=== PATIENT | male | born 1970 ===

== ENCOUNTER 2021-03-07 15:10 | Outpatient (REF) | payer MEDICAID, SELFPAY ==
--- NOTE | ~2021-03-07 | XR_ITS ---
EXAMINATION: XR SHOULDER, LEFT CLINICAL INFORMATION: Left shoulder pain. COMPARISON: None. TECHNIQUE: AP external rotation, Grashey, scapular Y, and axillary views of the left shoulder. FINDINGS: Mild glenohumeral joint space narrowing with small inferior marginal osteophytes. No osseous erosion. No fracture or dislocation. Unremarkable acromioclavicular joint. No abnormal soft tissue calcification. XR/XR shoulder LT min 2V IMPRESSION: Mild glenohumeral osteoarthritis.
== END 2021-03-07 15:11 | disposition home or self-care (01) ==
LOC: HO.XRAY 15:10
PROVIDERS: Absent Provider Nurse Practitioner Primary Care; PCP Nurse Practitioner Primary Care; Visit Provider Family Medicine
DX: M25.512 Pain in left shoulder (principal)
CPT/HCPCS: 73030

== ENCOUNTER 2022-10-29 09:24 | Outpatient (REF) | payer MEDICAID, SELFPAY ==
--- NOTE | ~2022-10-29 | US_ITS ---
EXAMINATION: US ABDOMEN COMPLETE CLINICAL INFORMATION: History of hepatitis C. COMPARISON: None TECHNIQUE: Real-time imaging of the abdominal viscera. FINDINGS: PANCREAS: There is a normal-sized nonenlarged lymph nodes seen adjacent the pancreatic head. The pancreas itself is normal in appearance as visualized. ABDOMINAL AORTA: The proximal, mid, and distal segments are normal in caliber. INFERIOR VENA CAVA: Visualized portions are normal. LIVER: Normal. The liver is normal in size. The liver contour is normal. Parenchymal echogenicity is normal. No focal hepatic lesion. There is no intrahepatic biliary duct dilatation seen. GALLBLADDER: Normal. The gallbladder is physiologically distended without evidence of stones, sludge, polyps, wall thickening or pericholecystic fluid. COMMON BILE DUCT: Normal in caliber measuring 0.2 cm in diameter. RIGHT KIDNEY: There is a 7 mm simple cyst in the right mid kidney. No hydronephrosis or renal calculi. The kidney measures 9.8 cm in maximum dimension. LEFT KIDNEY: Normal. No hydronephrosis. No renal calculi or focal parenchymal lesions. The kidney measures 8.3 cm in maximum dimension. SPLEEN: Normal. The spleen measures 8.6 cm in maximum dimension. FREE FLUID: None. US/US abdomen complete IMPRESSION: No focal liver abnormality seen.
== END 2022-10-29 09:25 | disposition home or self-care (01) ==
LOC: HO.US 09:24
PROVIDERS: Visit Provider Nurse Practitioner Primary Care
DX: Z86.19 Personal history of other infectious and parasitic diseases (principal)
CPT/HCPCS: 76700

== ENCOUNTER 2023-08-05 12:17 | Outpatient (REF) | payer MEDICAID, SELFPAY ==
[2023-08-05 13:13] LABS: Appearance Urine Clear; Color Urine Yellow; Glucose Urine UA Negative (Negative); Leukocyte Esterase Urine Negative (Negative); Nitrite Urine Negative (Negative); PH 5.5 (5.0-9.0); UMIC TRIGGER UA YES; Urine Blood Trace (Negative); Urine Ketones Negative (Negative); Urine Protein Negative (Neg-Trace)
[2023-08-05 13:19] LABS: Bacteria Urine None Seen (None Seen); Hyaline Casts Urine 0-2 /LPF (0-2); RBC Urine 0-2 /HPF (0-2); Squamous Epithelial Cell Urine 0-2 /HPF (0-2); WBC Urine 0-5 /HPF (0-5)
[2023-08-05 14:26] LABS: Anion Gap 13 (12-20); Blood Urea Nitrogen 15 mg/dL (9-16); Calcium 9.5 mg/dL (8.4-10.2); Carbon Dioxide 29 mmol/L (22-29); Chloride 103 mmol/L (96-108); Estimated Glomerular Filt Rate > 60; Glucose Random 83 mg/dL (60-115); Potassium 4.3 mmol/L (3.3-5.1); Prostate Specific Antigen 0.16 ng/mL (<0.05-4.0); Sodium 141 mmol/L (135-145)
== END 2023-08-05 12:18 | disposition home or self-care (01) ==
LOC: HO.HHCL 12:17
PROVIDERS: Visit Provider Nurse Practitioner Primary Care
DX: R39.11 Hesitancy of micturition (principal); R20.0 Anesthesia of skin; R20.2 Paresthesia of skin
CPT/HCPCS: 36415; 80048; 81001; 84153

== ENCOUNTER 2023-10-08 13:04 | Outpatient (REF) | payer MEDICAID, SELFPAY ==
[2023-10-08 16:25] LABS: MANUAL DIFF FLAG NO
[2023-10-08 16:32] LABS: Basophils Percent Auto 0.9 % (0-2); Eosinophils Absolute Auto 0.1 X10*3/uL (0.0-0.4); Eosinophils Percent Auto 2.4 % (0-4); Hematocrit 35.9 % (42.0-52.0); Hemoglobin 11.7 g/dl (14.0-18.0); Imm Gran Abs Auto 0.01 X10*3/uL (0.00-0.03); Imm Gran Pct Auto 0.2 % (0.0-0.4); Lymphocytes Absolute Auto 1.7 X10*3/uL (1.2-4.9); Lymphocytes Percent Auto 37.4 % (20-40); Mean Corpuscular HGB Conc 32.6 g/dl (31.0-36.0); Mean Corpuscular Hemoglobin 25.2 pg (27.0-33.0); Mean Corpuscular Volume 77.2 fL (80.0-98.0); Mean Platelet Volume 11.5 fL (9.4-12.4); Monocytes Absolute Auto 0.8 X10*3/uL (0.1-1.2); Monocytes Percent Auto 18.7 % (2-11); Neutrophils Absolute Auto 1.8 x10*3/uL (2.0-8.3); Neutrophils Percent Auto 40.4 % (45-73); Platelet Count 202 X10*3/uL (160-400); Red Blood Count 4.65 X10*6/uL (4.60-5.80); Red Cell Distribution Width 14.7 % (11.0-16.0); White Blood Count 4.5 X10*3/uL (4.8-10.8)
[2023-10-08 16:46] LABS: Alanine Aminotransferase 12 U/L (0-40); Albumin Level 4.3 g/dL (3.5-5.0); Alkaline Phosphatase 41 U/L (39-117); Anion Gap 14 (12-20); Aspartate Amino Transferase 23 U/L (5-37); Bilirubin Total 0.4 mg/dL (0.0-1.0); Blood Urea Nitrogen 21 mg/dL (9-16); Calcium 9.2 mg/dL (8.4-10.2); Carbon Dioxide 27 mmol/L (22-29); Chloride 104 mmol/L (96-108); Estimated Glomerular Filt Rate > 60; Glucose Random 87 mg/dL (60-115); Potassium 4.3 mmol/L (3.3-5.1); Sodium 141 mmol/L (135-145); Total Protein 7.6 g/dL (6.5-8.0)
[2023-10-08 18:44] LABS: Appearance Urine Clear; Color Urine Yellow; Glucose Urine UA Negative (Negative); Leukocyte Esterase Urine Negative (Negative); Nitrite Urine Negative (Negative); PH 5.5 (5.0-9.0); UMIC TRIGGER UACC YES; Urine Blood Small (1+) (Negative); Urine Ketones Negative (Negative); Urine Protein Negative (Neg-Trace)
[2023-10-08 19:01] LABS: Bacteria Urine None Seen (None Seen); Hyaline Casts Urine 0-2 /LPF (0-2); Squamous Epithelial Cell Urine 0-2 /HPF (0-2); WBC Urine 0-5 /HPF (0-5)
[2023-10-09 10:43] LABS: Absolute CD3 Count 1035 cells/uL (840-3060); Absolute CD4 Count 441 cells/uL (490-1740); Absolute CD8 Count 588 cells/uL (180-1170); Absolute Lymphocytes 1857 cells/uL (850-3900); CD4 CD8 Ratio 0.75 (0.86-5.00); Percent CD3 Cells 56 % (57-85); Percent CD4 Cells 24 % (30-61); Percent CD8 Cells 32 % (12-42)
[2023-10-09 14:19] LABS: CT PCR NOT DETECTED (Not Detect.); NG PCR NOT DETECTED (Not Detect.)
[2023-10-12 13:03] LABS: HIV RNA PCR Qn Copies 63 copies/mL (NOT DETECTED)
== END 2023-10-08 13:05 | disposition home or self-care (01) ==
LOC: HO.HHCL 13:04
PROVIDERS: Visit Provider Student in an Organized Health Care Education/Training Program
DX: B20 Human immunodeficiency virus [HIV] disease (principal)
CPT/HCPCS: 0353U; 36415; 80053; 81001; 85025; 86359; 86360; 87536

== ENCOUNTER 2023-11-12 16:10 | Outpatient (REF) | payer MEDICAID, SELFPAY ==
[2023-11-12 16:21] LABS: Appearance Urine Clear; Color Urine Yellow; Glucose Urine UA Negative (Negative); Leukocyte Esterase Urine Negative (Negative); Nitrite Urine Negative (Negative); PH 5.5 (5.0-9.0); Specific Gravity - Urine 1.025 (1.005-1.025); UMIC TRIGGER UACC YES; Urine Blood Trace (Negative); Urine Ketones Negative (Negative); Urine Protein Negative (Neg-Trace)
[2023-11-12 16:24] LABS: Bacteria Urine None Seen (None Seen); Hyaline Casts Urine 0-2 /LPF (0-2); RBC Urine 0-2 /HPF (0-2); Squamous Epithelial Cell Urine 0-2 /HPF (0-2); WBC Urine 0-5 /HPF (0-5)
== END 2023-11-12 16:11 | disposition home or self-care (01) ==
LOC: HO.HHCLNP 16:10
PROVIDERS: Visit Provider Nurse Practitioner Primary Care
DX: N50.811 Right testicular pain (principal)
CPT/HCPCS: 81001

== ENCOUNTER 2023-12-07 09:50 | Outpatient (AMB) | payer MEDICAID, SELFPAY ==
--- NOTE | 2023-12-07 09:53 | MHC.OFFVIS ---
Intake Intake Visit Reasons: microscopic heamturia Intake Note: New Patient presents for initial visit for micro hematuria Urology Medications: none Blood Thinner: none Smoker:No Patient stated he uses vape cigarette, He also stated he has a mild burning pain sometimes when he urinates, he saw visible blood in the urine only once, a few weeks ago.He also stated he has a right testicular mass. Electrical Design Technologist Required: Yes Electrical Design Technologist Name: CLARITZA CRUZEdisonChauncey Accompanied by: Self / Same As Patient Allergies NKDA Allergy (Unknown, Uncoded 12/07/23 10:41) Unknown Medication List - Last Reconciled 12/07/23 by Farnaz Sherman, [facility]- czylngzuc-qdduvsss-adhinmv ala 50-200-25 mg (Biktarvy) 1 tab PO QAM buprenorphine-naloxone 8-2 mg (Suboxone) 10 mg sublingual TID ferrous sulfate (FeroSul) 325 mg PO DAILY mecobalamin (vitamin B12) (B12 Active) 1,000 mcg PO DAILY multivitamin (Multiple Vitamins tablet) 1 tab PO DAILY pregabalin 75 mg PO BID triamcinolone acetonide 0.1% appl topical HPI HPI Comments History of Present Illness Details Reza is a pleasant 53-year-old Stateless-speaking male patient of Dr. Payne. He has a past medical history of fibromyalgia, depression, and nicotine dependence. He presents to the office today as a new patient for microscopic hematuria. In discussion with the patient today reports to be doing and feeling well. He reports having followed up with his PCP at which time microscopic hematuria was noted and recommendations were made for urology referral. When asked he does report a longstanding history of nicotine dependence over the last 20 years. He reports recently switching to vaping. Discussed at length potential causes of microscopic hematuria. Discussed at length further workup with CT urogram, cytology, and in office cystoscopy versus surveillance monitoring. This was discussed at length. Risks and benefits of further treatment options were discussed. He also discusses following up with PCP regarding intermittent scrotal pain he has been experiencing. In review of patient's chart it appears scrotal ultrasound was ordered however not yet performed. Offered examination however patient declines at this time. Discussed at length potential causes of scrotal pain. He denies urinary urgency, urinary frequency, incontinence, nocturia, dysuria, foul smelling urine, changes to urinary stream, flank pain, fever, and or chills. He is happy with his current voiding parameters. In office urinalysis results reviewed with the patient today 1+ microscopic hematuria. In review of patient's chart it appears PSA 08/16--0.2. He otherwise offers no other issues or concerns at this time [facility] Medical History Urinary hesitancy Tobacco dependence syndrome Depressive disorder Fibromyalgia Surgical History (Updated 12/07/23 @ 10:24 by Maggie Richardson CMA) No pertinent past surgical history Social History (Updated 12/07/23 @ 10:18 by Maggie Richardson CMA) Patient Tobacco Use Status: Never used Tobacco Review of Systems Const All systems reviewed & are unremarkable except as noted in HPI and below Eyes Reports no additional complaints ENT Reports no additional complaints Card Reports no additional complaints GI Reports no additional complaints Reports as per HPI Musc Reports as per HPI Neuro Reports no additional complaints Psych Reports as per HPI Endo Reports no additional complaints Kenneth/Lymph Reports no additional complaints Aller/Immun Reports no additional complaints Physical Exam Const General: cooperative, healthy appearing, comfortable, no acute distress, well developed, alert and awake Nutritional Appearance: average body habitus Orientation/consciousness: patient oriented x3 Limitations: no limitations HEENT Head: Yes normal to inspection, Yes normocephalic and Yes atraumatic Ears: hearing grossly normal bilaterally Eyes General: appearance normal, both eyes and all related structures Neck Neck: Yes normal visual inspection and Yes trachea midline Chest Chest palpation & inspection: normal inspection of the chest Resp Effort & Inspection: normal respiratory effort and able to speak in complete sentences Cardio Rate: regular rate GI Inspection: Yes normal to inspection General: Yes no CVA tenderness Back/Spine/Pelvis Back: no CVA tenderness Skin General skin exam: no rashes or lesions noted Neuro General: patient oriented x3 Extrem General: Yes normal to inspection Psych Appearance: grossly normal and well kempt Mental Status: mental status grossly normal Speech and movement: Normal speech and movement present and Clear speech present Affect: normal affect Attitude: cooperative Thought process: Normal thought process present Thought content: Normal thought content present Insight: Fair insight present (Psych) Judgement: Fair judgement present (Psych) Results AMB Urinalysis, Automated UA Leukoctes 0 Jaye/uL Last Edit by Maggie Richardson CMA on 12/07/23 10:26 UA Nitrite Negative Last Edit [facility], [facility] on 12/07/23 10:26 UA Urobilinogen 0.2 mg/dL Last Edit [facility], [facility] on 12/07/23 10:26 UA Protein 0 mg/dL Last Edit [facility], [facility] on 12/07/23 10:26 UA pH 6.0 Last Edit by [facility], [facility] on 12/07/23 10:26 UA Blood 25 Dieter/uL Last Edit by [facility], [facility] on 12/07/23 10:26 UA Specific [place] 1.025 Last Edit by Maggie Richardsonguicho Remya, [facility] on 12/07/23 10:26 UA Ketone Negative Last Edit [facility], [facility] on 12/07/23 10:26 UA Bilirubin 0 mg/dL Last Edit [facility], [facility] on 12/07/23 10:26 UA Glucose 0 mg/dL Last Edit [facility] on 12/07/23 10:26 Results Reviewed Results Reviewed: Laboratory Last Values Urine pH (Auto) 6.0 12/07/23 09:53 Specific [place] (Auto) 1.025 12/07/23 09:53 Urine Protein (Auto) 0 mg/dL 12/07/23 09:53 Glucose (UA)(Auto) 0 mg/dL 12/07/23 09:53 Urine Ketones (Auto) Negative 12/07/23 09:53 Urine Blood (Auto) 25 Dieter/uL 12/07/23 09:53 Urine Nitrite (Auto) Negative 12/07/23 09:53 Urine Bilirubin (Auto) 0 mg/dL 12/07/23 09:53 Urine Urobilinogen (Auto) 0.2 mg/dL 12/07/23 09:53 Leukocyte Esterase (Auto) 0 Jaye/uL 12/07/23 09:53 Assessment & Plan Assessment & Plan (1) Nicotine dependence: Code(s): F17.200 - Nicotine dependence, unspecified, uncomplicated (2) Microscopic hematuria: Code(s): R31.29 - Other microscopic hematuria Plan In office urinalysis results reviewed with the patient today; as noted above; will send for cytology. Discussed at length potential causes of microscopic hematuria as well as scrotal discomfort patient has been experiencing intermittently; this was discussed at length. Discussed, educated, and stressed the importance of limiting/quitting vaping and or nicotine dependence. Discussed at length risks and benefits of further treatment options Will obtain CT urogram for further assessment evaluation. Discussed scheduling scrotal u/s as order has already been placed by patients PCP. BUN and creatinine ordered for imaging. Patient currently denies any bothersome urinary issues. He is happy with his current voiding parameters. Discussed and stressed the importance of obtaining scrotal ultrasound; patient declines physical assessment today Follow-up in 1-2 months with imaging and labs to be completed prior; or sooner with any issues, concerns, and or questions. Orders: Orders Urine Cytology 12/07/23 N39.0 - Urinary tract infection, site not specified, R31.29 - Other microscopic hematuria CT urogram 12/07/23 F17.200 - Nicotine dependence, unspecified, uncomplicated, R31.29 - Other microscopic hematuria Blood Urea Nitrogen 12/07/23 F17.200 - Nicotine dependence, unspecified, uncomplicated, R31.29 - Other microscopic hematuria Creatinine 12/07/23 F17.200 - Nicotine dependence, unspecified, uncomplicated, R31.29 - Other microscopic hematuria AMB Urinalysis Automated 12/07/23 R33.9 - Retention of urine, unspecified Patient Instructions: The patient had an opportunity to ask questions regarding the treatment plan. All questions were answered. Physical exam, labs, and imaging were discussed and reviewed in detail. As well as risks, benefits, and discussion of treatment choices. No major barriers to understanding were identified. The patient expressed understanding and agreement with the above treatment plan. The patient was made aware they should contact our office by phone for worsening of their current condition, the appearance of new symptoms, or with any questions or concerns. Compliance is encouraged with any medications and follow up testing that is ordered. It is a privilege to be allowed the opportunity to participate in? your urological care.? Again, if you have any questions or concerns If you have any questions or concerns please do not hesitate to contact me. The office is [phone]. This note is constructed using voice recognition software. While every effort has been made to ensure accuracy radio program director errors may have been included. Yours sincerely, Farnaz Sherman, MA[employer]GER [employer] Coding Level of Care Code New Pt Level 4 (83665) Diagnoses Nicotine dependence F17.200 Microscopic hematuria R31.29 Time Spent (min) 40
== END 2023-12-07 10:37 | disposition home or self-care (01) ==
PROVIDERS: PCP Nurse Practitioner Primary Care; Visit Provider Nurse Practitioner Family
DX: F17.200 Nicotine dependence, unspecified, uncomplicated (principal); R31.29 Other microscopic hematuria
CPT/HCPCS: 99204

== ENCOUNTER 2023-12-07 09:50 | Outpatient (REF) | payer MEDICAID, SELFPAY ==
[2023-12-07 16:47] LABS: Urine Cytology See Pathology rpt
== END 2023-12-07 09:51 | disposition home or self-care (01) ==
LOC: HO.LAB 09:50
PROVIDERS: PCP Nurse Practitioner Primary Care; Visit Provider Nurse Practitioner Family
DX: R31.29 Other microscopic hematuria (principal); N39.0 Urinary tract infection, site not specified; F17.200 Nicotine dependence, unspecified, uncomplicated
CPT/HCPCS: 81003; 88112; 99212

== ENCOUNTER 2024-01-04 09:52 | Outpatient (REF) | payer MEDICAID, SELFPAY ==
[2024-01-04 12:08] LABS: Blood Urea Nitrogen 18 mg/dL (9-16); Estimated Glomerular Filt Rate > 60
[2024-01-05 14:34] LABS: HIV RNA PCR Qn Copies 38 copies/mL (NOT DETECTED); HIV RNA PCR Qn Log Copies 1.58 (NOT DETECTED)
== END 2024-01-04 09:53 | disposition home or self-care (01) ==
LOC: HO.HHCL 09:52
PROVIDERS: Student in an Organized Health Care Education/Training Program; Visit Provider Nurse Practitioner Family
DX: B20 Human immunodeficiency virus [HIV] disease (principal); R31.29 Other microscopic hematuria; F17.200 Nicotine dependence, unspecified, uncomplicated
CPT/HCPCS: 36415; 82565; 84520; 87536

== ENCOUNTER 2024-01-27 09:32 | Outpatient (AMB) | payer MEDICAID, SELFPAY ==
--- NOTE | 2024-01-27 09:52 | AM.OFFVISNUR ---
Intake Intake Visit Reasons: cysto/CT booked on 02/03/2024 Intake Note: Patient presents today for a CYSTOSCOPY Procedure: Meds: None Allergies to Antibiotic: No Known Allergies Blood Thinner: None Urinalysis test clear for Cysto? YES Disposable Uro-G HD Cystoscope Cannula: Lot: [id number] Exp: 08/19/2026 Rn Clinical Quality Required: Yes Rn Clinical Quality Language: Liquor Grinder Mill Operator Name: JERAMY Fuller/ISABEL ANDERSEN Information Interpreted: non-clinical & clinical Transfer Operator: Transfer Operator Present Accompanied by: Self / Same As Patient Allergies NKDA Allergy (Unknown, Uncoded 01/27/24 09:59) Unknown Office Procedures Cystoscopy Consent Discussed risk and benefit or proposed procedure with the patient. Information consent for procedure given to the patient. Discussed technical aspects, risks, benefits and alternatives in full. Addressed all of the patient's questions and concerns regarding the procedure. The patient demonstrated knowledge and understanding. They wish to proceed with this procedure. Preparation The patient was prepped in the usual manner. A principal technical specialist was present and in the room. Genitalia was prepped with betadine solution in a sterile manner. Lidocaine Jelly 2% was placed into the urethra and 16Fr flexible Olympus cystoscope was inserted into the meatus after adequate lubrication. [id number] DISPOSABLE SCOPE URO-G FLEXIBLE SCOPE Procedure code (CPT) selection complete Office Meds lidocaine HCl 2 % mucosal jelly in applicator Performing Provider: Eric Mathur MD Performing Location[facility] Administered by: Jesus Guthrie LPN on 01/27/24 09:52 Dose Route Admin Location Dispensed Lot Number Expiration Date [facility] Automatic Steel Tie Adjuster 10 mL intra-urethral 20 mL naproxen 500 mg tablet Performing Provider: Eric Mathur MD Performing Location: [facility] Administered by: Jesus Guthrie LPN on 01/27/24 09:52 Dose Route Admin Location Dispensed Lot Number Expiration Date [place] Automatic Steel Tie Adjuster 500 mg PO 1 tab ciprofloxacin HCl 500 mg tablet Performing Provider: Eric Mathur MD Performing Location: [facility] Administered by: Jesus Guthrie LPN on 01/27/24 09:52 Dose Route Admin Location Dispensed Lot Number Expiration Date [place] Automatic Steel Tie Adjuster 500 mg PO 1 tab Coding CPT Codes Cystoscopy - CPT: 95088-[id number] ([id number]) Assessment & Plan Assessment & Plan Orders: Orders AMB Cystoscopy Today R31.29 - Other microscopic hematuria
--- NOTE | 2024-01-27 10:36 | A.OFFVIS_ITS ---
Intake Intake Visit Reasons: cysto/CT booked on 02/03/2024 Intake Note: Patient presents today for a CYSTOSCOPY Procedure: Meds: None Allergies to Antibiotic: No Known Allergies Blood Thinner: None Urinalysis test clear for Cysto? YES Disposable Uro-G HD Cystoscope Cannula: Lot: [id number] Exp: 08/19/2026 Automotive Glass Specialist Required: Yes Automotive Glass Specialist Language: Racecar Driver Name: JERAMY Fuller/ISABEL Blanca Information Interpreted: non-clinical & clinical Salesperson Furniture: Salesperson Furniture Present Accompanied by: Self / Same As Patient Allergies NKDA Allergy (Unknown, Uncoded 01/27/24 10:37) Unknown Medication List - Last Reconciled 01/27/24 by Eric Mathur MD idkldurox-dalipbic-osaspyi ala 50-200-25 mg (Biktarvy) 1 tab PO QAM buprenorphine-naloxone 8-2 mg (Suboxone) 10 mg sublingual TID ferrous sulfate (FeroSul) 325 mg PO DAILY mecobalamin (vitamin B12) (B12 Active) 1,000 mcg PO DAILY multivitamin (Multiple Vitamins tablet) 1 tab PO DAILY pregabalin 75 mg PO BID triamcinolone acetonide 0.1% appl topical HPI HPI Comments 2 History of Present Illness Details 01/27/2024--Reza is HIV positive here f or office cystoscopy due to microscopic hematuria. He states that he has to push to urinate. I reviewed that urine cytology sent on 12/07/2023 -Negative for high-grade urothelial carcinoma.-Rare cells with features that raise the possibility of polyomavirus, unclear clinical significance, will repeat urine cytology. Cystoscopy findings: prostatic urethra non obstructive 'tight' sphincter tone observed, bulbous urethra WNL, no suspicious bladder lesions visualized. Plan -Flomax 0.4 mg daily repeat urine cytology. CT urogram pending. Nurse practitioner Farnaz to follow-up with patient regarding results. Review of chart: 12/07/2023--Reza is a pleasant 53-year -old Bulgarian-speaking male patient of Dr. Payne. He has a past medical history of fibromyalgia, depression, and nicotine dependence. He presents to the office today as a new patient for microscopic hematuria. In discussion with the patient today reports to be doing and feeling well. He reports having followed up with his PCP at which time microscopic hematuria was noted and recommendations were made for urology referral. When asked he does report a longstanding history of nicotine dependence over the last 20 years. He reports recently switching to vaping. Discussed at length potential causes of microscopic hematuria. Discussed at length further workup with CT urogram, cytology, and in office cystoscopy versus surveillance monitoring. This was discussed at length. Risks and benefits of further treatment options were discussed. He also discusses following up with PCP regarding intermittent scrotal pain he has been experiencing. In review of patient's chart it appears scrotal ultrasound was ordered however not yet performed. Offered examination however patient declines at this time. Discussed at length potential causes of scrotal pain. He denies urinary urgency, urinary frequency, incontinence, nocturia, dysuria, foul smelling urine, changes to urinary stream, flank pain, fever, and or chills. He is happy with his current voiding parameters. In office urinalysis results reviewed with the patient today 1+ microscopic hematuria. In review of patient's chart it appears PSA 08/16--0.2. He otherwise offers no other issues or concerns at this time 01/27/2024--Plan -Flomax 0.4 mg daily repe at urine cytology. CT urogram pending. Nurse practitioner Farnaz to follow-up with patient regarding results. [facility] Medical History HIV (human immunodeficiency virus infection) Urinary hesitancy Tobacco dependence syndrome Depressive disorder Fibromyalgia Surgical History No pertinent past surgical history Social History Patient Tobacco Use Status: Never used Tobacco Review of Systems Const All systems reviewed & are unremarkable except as noted in HPI and below Reports no additional complaints Eyes Reports no additional complaints ENT Reports no additional complaints Card Reports no additional complaints Resp Reports no additional complaints GI Reports no additional complaints Reports as per HPI Musc Reports no additional complaints Skin/Breast Reports system reviewed and no additional complaints, except as documented Neuro Reports no additional complaints Psych Reports no additional complaints Endo Reports no additional complaints Kenneth/Lymph Reports no additional complaints Aller/Immun Reports no additional complaints Office Procedures Cystoscopy Consent Discussed risk and benefit or proposed procedure with the patient. Information consent for procedure given to the patient. Discussed technical aspects, risks, benefits and alternatives in full. Addressed all of the patient's questions and concerns regarding the procedure. The patient demonstrated knowledge and understanding. They wish to proceed with this procedure. Preparation The patient was prepped in the usual manner. A software computer specialist was present and in the room. Genitalia was prepped with betadine solution in a sterile manner. Lidocaine Jelly 2% was placed into the urethra and 16Fr flexible Olympus cystoscope was inserted into the meatus after adequate lubrication. Procedure Time out per protocol performed. Bladder Inspection Bladder Inspection: The bladder was inspected in its entirety with utilization retroflexion displaying: Tumor(s): No suspicious lesions visualized Trabeculation: Mild to moderate Mucosal Erthema: Not applicable Orifices: normal shape and position Urethra: normal Cystoscopy findings: prostatic urethra non obstructive 'tight' sphincter tone observed, bulbous urethra WNL, no suspicious bladder lesions visualized [id number] DISPOSABLE SCOPE URO-G FLEXIBLE SCOPE Procedure code (CPT) selection complete Office Meds lidocaine HCl 2 % mucosal jelly in applicator Performing Provider: Eric Mathur MD [facility] Administered by: Jesus Guthrie LPN on 01/27/24 09:52 Dose Route Admin Location Dispensed Lot Number Expiration Date NDC Rn Pain Management 10 mL intra-urethral 20 mL naproxen 500 mg tablet Performing Provider: Eric Mathur MD Performing [facility] Administered by: Jesus Guthrie LPN on 01/27/24 09:52 Dose Route Admin Location Dispensed Lot Number Expiration Date NDC Rn Pain Management 500 mg PO 1 tab ciprofloxacin HCl 500 mg tablet Performing Provider: Eric Mathur MD Performing [facility] Administered by: Jesus Guthrie LPN on 01/27/24 09:52 Dose Route Admin Location Dispensed Lot Number Expiration Date NDC Rn Pain Management 500 mg PO 1 tab Results AMB Urinalysis, Automated UA Leukoctes 0 Jaye/uL Last Edit by JERAMY Fuller on 01/27/24 10:05 UA Nitrite Negative Last Edit by JERAMY Fuller on 01/27/24 10:05 UA Urobilinogen 0.2 mg/dL Last Edit by JERAMY Fuller on 01/27/24 10:0 5 UA Protein 0 mg/dL Last Edit by JERAMY Fuller on 01/27/24 10:05 UA pH 6.0 Last Edit by JERAMY Fuller on 01/27/24 10:05 UA Blood 25 Dieter/uL Last Edit by JERAMY Fuller on 01/27/24 10:05 1+ Tomás Garcia 01/27/24 10:05 UA Specific Lopeno 1.020 Last Edit by JERAMY Fuller on 01/27/24 10: 05 UA Ketone Negative Last Edit by JERAMY Fuller on 01/27/24 10:05 UA Bilirubin 0 mg/dL Last Edit by JERAMY Fuller on 01/27/24 10:05 UA Glucose 0 mg/dL Last Edit by JERAMY Fuller on 01/27/24 10:05 Results Reviewed Results Reviewed: Laboratory Last Values Urine pH (Auto) 6.0 01/27/24 10:03 Specific Lopeno (Auto) 1.020 01/27/24 10:03 Urine Protein (Auto) 0 mg/dL 01/27/24 10:03 Glucose (UA)(Auto) 0 mg/dL 01/27/24 10:03 Urine Ketones (Auto) Negative 01/27/24 10:03 Urine Blood (Auto) 25 Dieter/uL 01/27/24 10:03 Urine Nitrite (Auto) Negative 01/27/24 10:03 Urine Bilirubin (Auto) 0 mg/dL 01/27/24 10:03 Urine Urobilinogen (Auto) 0.2 mg/dL 01/27/24 10:03 Leukocyte Esterase (Auto) 0 Jaye/uL 01/27/24 10:03 Collected: 12/07/23 Location: .LAB Received: 12/08/23 Diagnosis Urine: -Negative for high-grade urothelial carcinoma. -Rare cells with features that raise the possibility of polyomavirus. COMMENT: Examination of a monolayer preparation slide shows benign urothelial cells with reactive changes, benign squamous cells, cellular debris, scattered red blood cells, occasional inflammatory cells few degenerated epithelioid cell groups (? tubular) and rare degenerated single cells with features that raise the possibility of polyomavirus. Assessment & Plan Assessment & Plan (1) Nicotine dependence: Code(s): F17.200 - Nicotine dependence, unspecified, uncomplicated (2) Microscopic hematuria: Code(s): R31.29 - Other microscopic hematuria (3) Abnormal urine cytology: Code(s): R82.89 - Other abnormal findings on cytological and histological examination of urine (4) Weak urinary stream: Code(s): R39.12 - Poor urinary stream Plan Plan -Flomax 0.4 mg daily repeat urine cytology. CT urogram pending. Nurse practitioner Farnaz to follow-up with patient regarding results. Orders: Orders AMB Cystoscopy Today R31.29 - Other microscopic hematuria AMB Urinalysis Automated Today Z13.9 - Encounter for screening, unspecified Medications: New tamsulosin (Flomax) 0.4 mg PO BEDTIME 30 caps 5RF Patient Instructions: The patient had an opportunity to ask questions regarding treatment plan. All questions were answered. No major barriers to understanding were identified. The patient expressed understanding and agreement with the above treatment plan. The patient is aware they should contact our office by phone for worsening of their current condition or the appearance of new symptoms. Compliance is encouraged with any medications and followup testing that is ordered. It is a privilege to be allowed the opportunity to participate in the urologic care of your patient. If you have any questions or concerns regarding treatment for the above conditions please do not hesitate to contact me. The office telephone contact is [phone]. This note is constructed in part using voice recognition software. While every effort has been made to ensure accuracy chancery clerk errors may have been included. Yours sincerely, Eric Mathur MD Coding Level of Care Code Est Pt Level 4 (42803) Procedure Only Diagnoses Nicotine dependence F17.200 Microscopic hematuria R31.29 Abnormal urine cytology R82.89 Weak urinary stream R39.12 CPT Codes Cystoscopy - CPT: 73583-[id number] ([id number])
== END 2024-01-27 11:04 | disposition home or self-care (01) ==
PROVIDERS: PCP Nurse Practitioner Primary Care; Visit Provider Urology
DX: R31.29 Other microscopic hematuria (principal); R82.89 Other abnormal findings on cytological and histological examination of urine; R39.12 Poor urinary stream; F17.200 Nicotine dependence, unspecified, uncomplicated; Z13.9 Encounter for screening, unspecified
CPT/HCPCS: 52000; 99214

== ENCOUNTER 2024-01-27 09:32 | Outpatient (REF) | payer MEDICAID, SELFPAY ==
[2024-01-27 16:46] LABS: Urine Cytology See Pathology rpt
== END 2024-01-27 09:33 | disposition home or self-care (01) ==
LOC: HO.LAB 09:32
PROVIDERS: PCP Nurse Practitioner Primary Care; Visit Provider Urology
DX: R31.29 Other microscopic hematuria (principal); R82.89 Other abnormal findings on cytological and histological examination of urine; R39.12 Poor urinary stream; F17.200 Nicotine dependence, unspecified, uncomplicated
CPT/HCPCS: 52000; 81003; 88112; 99212

== ENCOUNTER 2024-02-03 10:29 | Outpatient (REF) | payer MEDICAID, SELFPAY ==
--- NOTE | ~2024-02-03 | CT_ITS ---
EXAMINATION: CT ABDOMEN AND PELVIS WITHOUT AND WITH CONTRAST CLINICAL INFORMATION: Nicotine dependence, microscopic hematuria COMPARISON: Ultrasound examination of abdomen on 10/29/2022 TECHNIQUE: Noncontrast CT of the abdomen and pelvis is performed followed by split bolus contrast-enhanced images using 85 mL Omnipaque 350 contrast.? Postcontrast imaging is performed during the combined nephrogram and excretion phase. Sagittal and coronal reformatted images were obtained on the technologist's workstation for both the precontrast and postcontrast phases. This CT examination was performed using dose optimization techniques as appropriate, variously including the following: *Automated exposure control *Adjustment of mA and/or kV according to patient size (this includes techniques or standardized protocols for targeted exams where dose is matched to indication/reason for exam; i.e. extremities or head) *Use of iterative reconstruction technique DLP: 482.71 mGy-cm FINDINGS: LUNG BASES: Bilateral lung bases are clear. LIVER: No focal lesion is seen in the liver. GALLBLADDER AND BILIARY TREE: Gallbladder appears unremarkable without calcified stones. Common bile duct is not dilated. SPLEEN: The spleen is normal in size without focal lesion. PANCREAS: The pancreas appears unremarkable. ADRENAL GLANDS: Adrenal glands are normal in size without focal lesion bilaterally. KIDNEYS: Precontrast images show no calcified renal stones. Post contrast nephrographic phase images show normal uniform bilateral nephrograms. A tiny 0.8 cm simple cyst is seen at anterior medial cortical border of right kidney, visualized on ultrasound examination, for which no follow up imaging is recommended. Excretory phase images show normal excretion of contrast into bilateral renal calyces, pelvises and ureters without filling defects. BOWELS: There is mild fecal distention of the ascending and transverse colon. RETROPERITONEUM: No abnormally enlarged retroperitoneal lymph nodes, mass or hematoma could be seen. BLOOD VESSELS: Abdominal aorta is normal in size with calcified atherosclerotic plaques and smoothly patent. ABDOMINAL WALL: Abdominal subcutaneous tissue and muscle are intact. No evidence of ventral hernia. PERITONEUM: There was no ascites. There were no abdominal peritoneal inflammatory changes seen. No free peritoneal air was seen. No abnormally enlarged mesenteric lymph nodes are found. BONES: No fracture or dislocation. No focal bone lesion diagnostic of metastatic disease could be seen in the lumbar region. EXAMINATION: CT pelvis. FINDINGS: URINARY BLADDER AND URETERS: Precontrast images show no calcified urinary bladder stone or distal ureteric stones. Urinary bladder fills normally with contrast without filling defects. There is normal visualization of bilateral distal ureters which are normal in size. BOWELS: There is moderate fecal distention of the sigmoid colon. Appendix cannot be identified. GENITAL ORGANS: Seminal vesicles are unremarkable. Prostate gland is normal. LYMPH NODES: No abnormally enlarged iliac or inguinal lymph nodes are seen. PERITONEUM: No inflammatory changes, ascites or free peritoneal air are found in the pelvis. BONES: No fracture or dislocation. No focal bone lesion diagnostic of metastatic disease could be seen in the pelvis. CT/CT urogram IMPRESSION: 1. No evidence of nephrolithiasis, obstructive uropathy, renal mass or urothelial lesion. 2. Medial mid right renal cortical simple cyst is found, for which no follow up imaging is recommended. 3. Mild fecal distention of the ascending and transverse colon, Moderate fecal distention of the sigmoid colon.
[2024-02-03] MEDS: iohexoL 350 MG/ML 100 ML INFUS..BTL 85 ML IV (11:24)
== END 2024-02-03 10:30 | disposition home or self-care (01) ==
LOC: HO.CT 10:29
PROVIDERS: PCP Nurse Practitioner Primary Care; Visit Provider Nurse Practitioner Family
DX: R31.29 Other microscopic hematuria (principal); F17.200 Nicotine dependence, unspecified, uncomplicated
CPT/HCPCS: 74178; Q9967

== ENCOUNTER 2024-03-23 09:19 | Outpatient (AMB) | payer MEDICAID, SELFPAY ==
--- NOTE | 2024-03-23 09:41 | A.OFFVIS_ITS ---
Intake Visit Reasons: 1m/CT(set) Intake Note: Patient presents for follow up visit for micro hematuria Urology Medications: Tamsulosin Blood Thinner: none Smoker:No Equine Intern Required: Yes Equine Intern Name: CLARITZA CRUZJAYDEN Accompanied by: Self / Same As Patient Allergies NKDA Allergy (Unknown, Uncoded 03/23/24 09:57) Unknown Medication List - Last Reconciled 03/23/24 by Farnaz Sherman, INSURANCE CLAIMS SPECIALIST- [id number] ala 50-200-25 mg (Biktarvy) 1 tab PO QAM buprenorphine-naloxone 8-2 mg (Suboxone) 10 mg sublingual TID ferrous sulfate (FeroSul) 325 mg PO DAILY mecobalamin (vitamin B12) (B12 Active) 1,000 mcg PO DAILY multivitamin (Multiple Vitamins tablet) 1 tab PO DAILY pregabalin 75 mg PO BID tamsulosin (Flomax) 0.4 mg PO BEDTIME triamcinolone acetonide 0.1% appl topical HPI Comments Details: Reza is a pleasant 53-year-old Khmer-speaking male patient of Dr. Payne. He has a past medical history of fibromyalgia, depression, and nicotine dependence. He presents to the office today for follow-up of his microscopic hematuria in the setting of nicotine dependence and scrotal discomfort. Of note, patient underwent an office cystoscopy during last office visit with Dr. Domenic Tyson last month that noted Cystoscopy findings: prostatic urethra non obstructive 'tight' sphincter tone observed, bulbous urethra WNL, no suspicious bladder lesions visualized. However, CT urogram was pending therefore patient is following up today for CT results. These results reviewed with the patient today. Precontrast images show no calcified renal stones. Post contrast nephrographic phase images show normal uniform bilateral nephrograms. A tiny 0.8 cm simple cyst is seen at anterior medial cortical border of right kidney, visualized on ultrasound examination, for which no follow up imaging is recommended per radiology report. Excretory phase images show normal excretion of contrast into bilateral renal calyces, pelvises and ureters without filling defects. No abnormally enlarged retroperitoneal lymph nodes, masses, or hematoma seen. Urine cytology 12/18 -Negative for high-grade urothelial carcinoma. Rare cells with features that raise the possibility of polyomavirus. Cytology 02/15 Negative for high-grade urothelial carcinoma. He continues to discusses following up with PCP regarding intermittent scrotal pain he has been experiencing. In review of patient's chart it appears scrotal ultrasound was ordered however not yet performed. Offered examination however patient continues to decline at this time. He describes pain to be intermittent and feels like a soreness. He denies any recent trauma. He denies any associated nausea or vomiting. He currently denies pain however discusses having gone swimming this past weekend and felt a soreness afterwards. Discussed at length potential causes of scrotal pain. He denies urinary urgency, urinary frequency, incont inence, nocturia, dysuria, foul smelling urine, changes to urinary stream, flank pain, fever, and or chills. He is happy with his current voiding parameters. In office urinalysis results reviewed with the patient today. In review of patient's chart it appears PSA 08/16--0.2. He otherwise offers no other issues or concerns at this time. [facility] Medical History HIV (human immunodeficiency virus infection) Urinary hesitancy Tobacco dependence syndrome Depressive disorder Fibromyalgia Surgical History No pertinent past surgical history Social History Patient Tobacco Use Status: Never used Tobacco Review of Systems Const All systems reviewed & are unremarkable except as noted in HPI and below Eyes Reports no additional complaints ENT Reports no additional complaints Card Reports no additional complaints GI Reports no additional complaints Reports as per HPI Musc Reports as per HPI Neuro Reports no additional complaints Psych Reports as per HPI Endo Reports no additional complaints Kenneth/Lymph Reports no additional complaints Aller/Immun Reports no additional complaints Physical Exam Const General: cooperative, healthy appearing, comfortable, no acute distress, well developed, alert and awake Nutritional Appearance: average body habitus Orientation/consciousness: patient oriented x3 Limitations: no limitations HEENT Head: Yes normal to inspection, Yes normocephalic and Yes atraumatic Ears: hearing grossly normal bilaterally Eyes General: appearance normal, both eyes and all related structures Neck Neck: Yes normal visual inspection and Yes trachea midline Chest Chest palpation & inspection: normal inspection of the chest Resp Effort & Inspection: normal respiratory effort and able to speak in complete sentences Cardio Rate: regular rate GI Inspection: Yes normal to inspection General: Yes no CVA tenderness Back/Spine/Pelvis Back: no CVA tenderness Skin General skin exam: no rashes or lesions noted Neuro General: patient oriented x3 Extrem General: Yes normal to inspection Psych Appearance: grossly normal and well kempt Mental Status: mental status grossly normal Speech and movement: Normal speech and movement present and Clear speech present Affect: normal affect Attitude: cooperative Thought process: Normal thought process present Thought content: Normal thought content present Insight: Fair insight present (Psych) Judgement: Fair judgement present (Psych) Results AMB Urinalysis, Automated UA Leukoctes 0 Jaye/uL Last Edit by [employer] on 03/23/24 09:49 UA Nitrite Negative Last Edit by [employer] on 03/23/24 09:49 UA Urobilinogen 0.2 mg/dL Last Edit by [employer] on 03/23/24 09:49 UA Protein 0 mg/dL Last Edit by [employer] on 03/23/24 09:49 UA pH 6.0 Last Edit by [employer] on 03/23/24 09:49 UA Blood 10 Dieter/uL Last Edit by [employer] on 03/23/24 09:49 UA Specific [place] 1.015 Last Edit by [employer] on 03/23/24 09:49 UA Ketone Negative Last Edit by [employer] on 03/23/24 09:49 UA Bilirubin 0 mg/dL Last Edit by [employer] on 03/23/24 09:49 UA Glucose 0 mg/dL Last Edit by [employer] on 03/23/24 09:49 Results Reviewed Results Reviewed: Laboratory Last Values Urine pH (Auto) 6.0 03/23/24 09:42 Specific [place] (Auto) 1.015 03/23/24 09:42 Urine Protein (Auto) 0 mg/dL 03/23/24 09:42 Glucose (UA)(Auto) 0 mg/dL 03/23/24 09:42 Urine Ketones (Auto) Negative 03/23/24 09:42 Urine Blood (Auto) 10 Dieter/uL 03/23/24 09:42 Urine Nitrite (Auto) Negative 03/23/24 09:42 Urine Bilirubin (Auto) 0 mg/dL 03/23/24 09:42 Urine Urobilinogen (Auto) 0.2 mg/dL 03/23/24 09:42 Leukocyte Esterase (Auto) 0 Jaye/uL 03/23/24 09:42 Date of Service: 02/03/24 EXAMINATION: CT ABDOMEN AND PELVIS WITHOUT AND WITH CONTRAST FINDINGS: LUNG BASES: Bilateral lung bases are clear. LIVER: No focal lesion is seen in the liver. GALLBLADDER AND BILIARY TREE: Gallbladder appears unremarkable without calcified stones. Common bile duct is not dilated. SPLEEN: The spleen is normal in size without focal lesion. PANCREAS: The pancreas appears unremarkable. ADRENAL GLANDS: Adrenal glands are normal in size without focal lesion bilaterally. KIDNEYS: Precontrast images show no calcified renal stones. Post contrast nephrographic phase images show normal uniform bilateral nephrograms. A tiny 0.8 cm simple cyst is seen at anterior medial cortical border of right kidney, visualized on ultrasound examination, for which no follow up imaging is recommended. Excretory phase images show normal excretion of contrast into bilateral renal calyces, pelvises and ureters without filling defects. BOWELS: There is mild fecal distention of the ascending and transverse colon. RETROPERITONEUM: No abnormally enlarged retroperitoneal lymph nodes, mass or hematoma could be seen. BLOOD VESSELS: Abdominal aorta is normal in size with calcified atherosclerotic plaques and smoothly patent. ABDOMINAL WALL: Abdominal subcutaneous tissue and muscle are intact. No evidence of ventral hernia. PERITONEUM: There was no ascites. There were no abdominal peritoneal inflammatory changes seen. No free peritoneal air was seen. No abnormally enlarged mesenteric lymph nodes are found. BONES: No fracture or dislocation. No focal bone lesion diagnostic of metastatic disease could be seen in the lumbar region. EXAMINATION: CT pelvis. FINDINGS: URINARY BLADDER AND URETERS: Precontrast images show no calcified urinary bladder stone or distal ureteric stones. Urinary bladder fills normally with contrast without filling defects. There is normal visualization of bilateral distal ureters which are normal in size. BOWELS: There is moderate fecal distention of the sigmoid colon. Appendix cannot be identified. GENITAL ORGANS: Seminal vesicles are unremarkable. Prostate gland is normal. LYMPH NODES: No abnormally enlarged iliac or inguinal lymph nodes are seen. PERITONEUM: No inflammatory changes, ascites or free peritoneal air are found in the pelvis. BONES: No fracture or dislocation. No focal bone lesion diagnostic of metastatic disease could be seen in the pelvis. IMPRESSION: 1. No evidence of nephrolithiasis, obstructive uropathy, renal mass or urothelial lesion. 2. Medial mid right renal cortical simple cyst is found, for which no follow up imaging is recommended. 3. Mild fecal distention of the ascending and transverse colon, Moderate fecal distention of the sigmoid colon. Assessment & Plan Assessment & Plan (1) Abnormal urine cytology: Code(s): R82.89 - Other abnormal findings on cytological and histological examination of urine Category: Medical (2) Nicotine dependence: Code(s): F17.200 - Nicotine dependence, unspecified, uncomplicated Category: Medical (3) Microscopic hematuria: Code(s): R31.29 - Other microscopic hematuria Category: Medical (4) Scrotal pain: Code(s): N50.82 - Scrotal pain Category: Medical Plan In office urinalysis results reviewed with the patient today; as noted above. Recent CT results reviewed with the patient today; as noted above. Discussed at length potential causes of microscopic hematuria. Patient continuing to report intermittent scrotal discomfort however unable to a ssess patient today; discussed obtaining scrotal ultrasound as ordered by PCP earlier this year. Discussed potential causes of scrotal pain. Discussed importance of limiting vaping for overall health and well-being. Follow-up in 1-3 months with imaging to be completed prior; or sooner with any issues, concerns, and or questions. Orders: Orders AMB Urinalysis Automated Today Z13.9 - Encounter for screening, unspecified US scrotum 11/12/23 N50.89 - Other specified disorders of the male genital organs Urine Cytology Today R31.29 - Other microscopic hematuria Patient Instructions: The patient had an opportunity to ask questions regarding the treatment plan. All questions were answered. Physical exam, labs, and imaging were discussed and reviewed in detail. As well as risks, benefits, and discussion of treatment choices. No major barriers to understanding were identified. The patient expressed understanding and agreement with the above treatment plan. The patient was made aware they should contact our office by phone for worsening of their current condition, the appearance of new symptoms, or with any questions or concerns. Compliance is encouraged with any medications and follow up testing that is ordered. It is a privilege to be allowed the opportunity to participate in? your urological care.? Again, if you have any questions or concerns If you have any questions or concerns please do not hesitate to contact me. The office is [phone]. This note is constructed using voice recognition software. While every effort has been made to ensure accuracy shellfish processing laborer errors may have been included. Yours sincerely, VIKAS Rehman-JENNIE Coding Level of Care Code Est Pt Level 3 (85497) Diagnoses Abnormal urine cytology R82.89 Nicotine dependence F17.200 Microscopic hematuria R31.29 Scrotal pain N50.82
== END 2024-03-23 09:58 | disposition home or self-care (01) ==
PROVIDERS: PCP Nurse Practitioner Primary Care; Visit Provider Nurse Practitioner Family
DX: R82.89 Other abnormal findings on cytological and histological examination of urine (principal); F17.200 Nicotine dependence, unspecified, uncomplicated; R31.29 Other microscopic hematuria; N50.82 Scrotal pain
CPT/HCPCS: 99213

== ENCOUNTER 2024-03-23 09:19 | Outpatient (REF) | payer MEDICAID, SELFPAY | END 2024-03-23 09:20 | disposition home or self-care (01) | LOC: HO.LNP 09:19 | PROVIDERS: PCP Nurse Practitioner Primary Care; Visit Provider Nurse Practitioner Family | DX: R31.29 Other microscopic hematuria (principal); R82.89 Other abnormal findings on cytological and histological examination of urine; N50.82 Scrotal pain; F17.200 Nicotine dependence, unspecified, uncomplicated | CPT/HCPCS: 81003; 99212 ==

== ENCOUNTER 2024-03-23 11:53 | Outpatient (REF) | payer MEDICAID, SELFPAY ==
--- NOTE | ~2024-03-23 | XR_ITS ---
EXAMINATION: XR HIP, LEFT CLINICAL INFORMATION: Left lateral hip pain worse at night. COMPARISON: 10/16/2019 TECHNIQUE: Two views of the left hip. FINDINGS: Moderate degenerative changes in the left hip with superior narrowing of the joint space and hypertrophic change. Pubic symphysis and left sacroiliac joint are maintained. Amorphous calcifications in the soft tissues adjacent to the greater trochanter. XR/XR hip LT min 2V IMPRESSION: 1. Moderate degenerative changes in the left hip. 2. Amorphous calcifications in the soft tissues adjacent to the greater trochanter.
== END 2024-03-23 11:54 | disposition home or self-care (01) ==
LOC: HO.XRAY 11:53
PROVIDERS: PCP Nurse Practitioner Primary Care; Visit Provider Internal Medicine
DX: M25.552 Pain in left hip (principal)
CPT/HCPCS: 73502

== ENCOUNTER 2024-03-24 09:11 | Outpatient (REF) | payer MEDICAID, SELFPAY ==
--- NOTE | ~2024-03-24 | US_ITS ---
EXAMINATION: US SCROTUM CLINICAL INFORMATION: Testicular pain. Evaluate for epididymal mass. Evaluate for torsion. COMPARISON: None available. TECHNIQUE: A sonogram of the scrotum was performed assessing snyder-scale appearance and color Doppler flow. Spectral Doppler analysis of the arterial and venous flow were performed in the testes bilaterally. FINDINGS: RIGHT: Right testicle measures 4.2 x 2.0 x 3.4 cm, volume 14.5 mL. No focal testicular parenchymal lesions are visualized. Spectral Doppler analysis of the arterial and venous flow is normal in the right testis. Right epididymal head is normal in size. Right epididymal Doppler flow is normal. There is a small right hydrocele with debris. Right varicocele is also seen. LEFT: Left testicle measures 4.5 x 1.8 x 2.8 cm, volume 11.6 mL. No focal testicular parenchymal lesions are visualized. Spectral Doppler analysis of the arterial and venous flow is normal in the left testis. Left epididymal head is normal in size. No left hydrocele is seen. Left epididymal Doppler flow is normal. Left varicocele is seen. US/US scrotum IMPRESSION: 1. Normal testicles and epididymides. 2. Small right hydrocele with debris. 3. Bilateral varicoceles.
--- NOTE | ~2024-03-24 | US_ITS ---
EXAMINATION: US SCROTUM CLINICAL INFORMATION: Testicular pain. Evaluate for epididymal mass. Evaluate for torsion. COMPARISON: None available. TECHNIQUE: A sonogram of the scrotum was performed assessing snyder-scale appearance and color Doppler flow. Spectral Doppler analysis of the arterial and venous flow were performed in the testes bilaterally. FINDINGS: RIGHT: Right testicle measures 4.2 x 2.0 x 3.4 cm, volume 14.5 mL. No focal testicular parenchymal lesions are visualized. Spectral Doppler analysis of the arterial and venous flow is normal in the right testis. Right epididymal head is normal in size. Right epididymal Doppler flow is normal. There is a small right hydrocele with debris. Right varicocele is also seen. LEFT: Left testicle measures 4.5 x 1.8 x 2.8 cm, volume 11.6 mL. No focal testicular parenchymal lesions are visualized. Spectral Doppler analysis of the arterial and venous flow is normal in the left testis. Left epididymal head is normal in size. No left hydrocele is seen. Left epididymal Doppler flow is normal. Left varicocele is seen. US/US scrotum doppler IMPRESSION: 1. Normal testicles and epididymides. 2. Small right hydrocele with debris. 3. Bilateral varicoceles.
[2024-03-24 16:41] LABS: Urine Cytology See Pathology rpt
== END 2024-03-24 09:12 | disposition home or self-care (01) ==
LOC: HO.HMGCX 09:11
PROVIDERS: PCP Nurse Practitioner Primary Care; Visit Provider Nurse Practitioner Family
DX: R31.29 Other microscopic hematuria (principal); N50.89 Other specified disorders of the male genital organs; I86.1 Scrotal varices
CPT/HCPCS: 76870; 88112; 93975

== ENCOUNTER 2024-05-26 09:19 | Outpatient (AMB) | payer MEDICAID, SELFPAY ==
--- NOTE | 2024-05-26 09:28 | A.OFFVIS_ITS ---
Intake Visit Reasons: 2m/US(set) Intake Note: Patient presents for a 2 month/US follow up Urology Medications: Tamsulosin Blood Thinner: none Smoker:No Senior Front End Developer Required: Yes Senior Front End Developer Name: [id number] & CLARITZA CRUZJAYDEN Accompanied by: Self / Same As Patient Allergies NKDA Allergy (Unknown, Uncoded 03/23/24 09:57) Unknown Medication List - Last Reconciled 05/26/24 by Farnaz Sherman, [facility]- bixkdvuoy-wlcjhrzc-belffqy ala 50-200-25 mg (Biktarvy) 1 tab PO QAM buprenorphine-naloxone 8-2 mg (Suboxone) 10 mg sublingual TID ferrous sulfate (FeroSul) 325 mg PO DAILY mecobalamin (vitamin B12) (B12 Active) 1,000 mcg PO DAILY multivitamin (Multiple Vitamins tablet) 1 tab PO DAILY pregabalin 75 mg PO BID triamcinolone acetonide 0.1% appl topical HPI Comments Details: Reza is a pleasant 53-year-old Irish-speaking male patient of Dr. Payne. He has a past medical history of fibromyalgia, depression, and nicotine dependence. He presents to the office today for follow-up of his microscopic hematuria in the setting of nicotine dependence and scrotal discomfort. Recent scrotal ultrasound results reviewed with the patient today. Normal testicles and epididymitis, small right hydrocele, bilateral varicoceles. In discussion with the patient today he reports feeling lower urinary tract symptoms have since resolved and does not feel he has any bothersome urinary issues or concerns. In office urinalysis results reviewed with the patient today. Microscopic hematuria again noted. However, patient underwent an office cystoscopy 02/[address] Domenic Tyson last month that noted Cystoscopy findings: prostatic urethra non obstructive 'tight' sphincter tone observed, bulbous urethra WNL, no suspicious bladder lesions visualized. Previous workup has included a CT urogram that noted precontrast images show no calcified renal stones. Post contrast nephrographic phase images show normal uniform bilateral nephrograms. A tiny 0.8 cm simple cyst is seen at anterior medial cortical border of right kidney, visualized on ultrasound examination, for which no follow up imaging is recommended per radiology report. Excretory phase images show normal excretion of contrast into bilateral renal calyces, pelvises and ureters without filling defects. No abnormally enlarged retroperitoneal lymph nodes, masses, or h ematoma seen. Urine cytology 12/18 -Negative for high-grade urothelial carcinoma. Rare cells with features that raise the possibility of polyomavirus. Cytology 02/15 Negative for high-grade urothelial carcinoma. He denies urinary urgency, urinary frequency, incontinence, nocturia, dysuria, foul smelling urine, changes to urinary stream, flank pain, fever, and or chills. He is happy with his current voiding parameters. In review of patient's chart it appears PSA 08/16--0.2. He otherwise offers no other issues or concerns at this time. [facility] Medical History HIV (human immunodeficiency virus infection) Urinary hesitancy Tobacco dependence syndrome Depressive disorder Fibromyalgia Surgical History No pertinent past surgical history Social History Patient Tobacco Use Status: Never used Tobacco Review of Systems Const All systems reviewed & are unremarkable except as noted in HPI and below Eyes Reports no additional complaints ENT Reports no additional complaints Card Reports no additional complaints GI Reports no additional complaints Reports as per HPI Musc Reports as per HPI Neuro Reports no additional complaints Psych Reports as per HPI Endo Reports no additional complaints Kenneth/Lymph Reports no additional complaints Aller/Immun Reports no additional complaints Physical Exam Const General: cooperative, healthy appearing, comfortable, no acute distress, well developed, alert and awake Nutritional Appearance: average body habitus Orientation/consciousness: patient oriented x3 Limitations: no limitations HEENT Head: Yes normal to inspection, Yes normocephalic and Yes atraumatic Ears: hearing grossly normal bilaterally Eyes General: appearance normal, both eyes and all related structures Neck Neck: Yes normal visual inspection and Yes trachea midline Chest Chest palpation & inspection: normal inspection of the chest Resp Effort & Inspection: normal respiratory effort and able to speak in complete sentences Cardio Rate: regular rate GI Inspection: Yes normal to inspection General: Yes no CVA tenderness Back/Spine/Pelvis Back: no CVA tenderness Skin General skin exam: no rashes or lesions noted Neuro General: patient oriented x3 Extrem General: Yes normal to inspection Psych Appearance: grossly normal and well kempt Mental Status: mental status grossly normal Speech and movement: Normal speech and movement present and Clear speech present Affect: normal affect Attitude: cooperative Thought process: Normal thought process present Thought content: Normal thought content present Insight: Fair insight present (Psych) Judgement: Fair judgement present (Psych) Results AMB Urinalysis, Automated UA Leukoctes 0 Jaye/uL Last Edit by Sylvia Gonzalez CMA on 05/26/24 09:56 UA Nitrite Negative Last Edit by Sylvia Gonzalez CMA on 05/26/24 09:56 UA Urobilinogen 0.2 mg/dL Last Edit by Sylvia Gonzalez CMA on 05/26/24 09:56 UA Protein 0 mg/dL Last Edit by Sylvia Gonzalez CMA on 05/26/24 09:56 UA pH 6.0 Last Edit by Sylvia Gonzalez CMA on 05/26/24 09:56 UA Blood 10 Dieter/uL Last Edit by Sylvia Gonzalez CMA on 05/26/24 09:56 UA Specific [place] 1.020 Last Edit by Sylvia Gonzalez CMA on 05/26/24 09:56 UA Ketone Negative Last Edit by Sylvia Gonzalez CMA on 05/26/24 09:56 UA Bilirubin 0 mg/dL Last Edit by Sylvia Gonzalez CMA on 05/26/24 09:56 UA Glucose 0 mg/dL Last Edit by Sylvia Gonzalez CMA on 05/26/24 09:56 Results Reviewed Results Reviewed: Laboratory Last Values Urine pH (Auto) 6.0 05/26/24 09:56 Specific [place] (Auto) 1.020 05/26/24 09:56 Urine Protein (Auto) 0 mg/dL 05/26/24 09:56 Glucose (UA)(Auto) 0 mg/dL 05/26/24 09:56 Urine Ketones (Auto) Negative 05/26/24 09:56 Urine Blood (Auto) 10 Dieter/uL 05/26/24 09:56 Urine Nitrite (Auto) Negative 05/26/24 09:56 Urine Bilirubin (Auto) 0 mg/dL 05/26/24 09:56 Urine Urobilinogen (Auto) 0.2 mg/dL 05/26/24 09:56 Leukocyte Esterase (Auto) 0 Jaye/uL 05/26/24 09:56 Date of Service: 03/24/24 EXAMINATION: US SCROTUM FINDINGS: RIGHT: Right testicle measures 4.2 x 2.0 x 3.4 cm, volume 14.5 mL. No focal testicular parenchymal lesions are visualized. Spectral Doppler analysis of the arterial and venous flow is normal in the right testis. Right epididymal head is normal in size. Right epididymal Doppler flow is normal. There is a small right hydrocele with debris. Right varicocele is also seen. LEFT: Left testicle measures 4.5 x 1.8 x 2.8 cm, volume 11.6 mL. No focal testicular parenchymal lesions are visualized. Spectral Doppler analysis of the arterial and venous flow is normal in the left testis. Left epididymal head is normal in size. No left hydrocele is seen. Left epididymal Doppler flow is normal. Left varicocele is seen. IMPRESSION: 1. Normal testicles and epididymides. 2. Small right hydrocele with debris. 3. Bilateral varicoceles. Assessment & Plan Assessment & Plan (1) Bilateral varicoceles: Code(s): I86.1 - Scrotal varices Category: Medical (2) Nicotine dependence: Code(s): F17.200 - Nicotine dependence, unspecified, uncomplicated Category: Medical (3) Microscopic hematuria: Code(s): R31.29 - Other microscopic hematuria Category: Medical Plan In office urinalysis results reviewed with the patient today; as noted above Discussed at length potential causes of persistent microscopic hematuria in the setting of nicotine dependence; discussed continuation of surveillance monitoring. Discussed, educated, and stressed the importance of limiting/quitting smoking for overall health and well-being. Recent scrotal ultrasound results reviewed with the patient today; as noted above. Reassurance provided; although patient refuses physical assessment today. Patient denies any bothersome urinary issues or concerns. He reports be happy with current voiding parameters. Follow-up in 6 months; or sooner with any issues, concerns, and or questions. Orders: Orders AMB Urinalysis Automated 05/26/24 Z13.9 - Encounter for screening, unspecified Patient Instructions: The patient had an opportunity to ask questions regarding the treatment plan. All questions were answered. Physical exam, labs, and imaging were discussed and reviewed in detail. As well as risks, benefits, and discussion of treatment choices. No major barriers to understanding were identified. The patient expressed understanding and agreement with the above treatment plan. The patient was made aware they should contact our office by phone for worsening of their current condition, the appearance of new symptoms, or with any questions or concerns. Compliance is encouraged with any medications and follow up testing that is ordered. It is a privilege to be allowed the opportunity to participate in? your urological care.? Again, if you have any questions or concerns If you have any questions or concerns please do not hesitate to contact me. The office is [phone]. This note is constructed using voice recognition software. While every effort has been made to ensure accuracy contracts representative errors may have been included. Yours sincerely, BRANDEE Rehman Coding Level of Care Code Est Pt Level 3 (04632) Diagnoses Bilateral varicoceles I86.1 Nicotine dependence F17.200 Microscopic hematuria R31.29
== END 2024-05-26 09:59 | disposition home or self-care (01) ==
PROVIDERS: PCP Nurse Practitioner Primary Care; Visit Provider Nurse Practitioner Family
DX: I86.1 Scrotal varices (principal); F17.200 Nicotine dependence, unspecified, uncomplicated; R31.29 Other microscopic hematuria
CPT/HCPCS: 99213

== ENCOUNTER → 2024-05-26 09:19 | Outpatient (BNVA) | payer MEDICAID, SELFPAY | PROVIDERS: PCP Nurse Practitioner Primary Care; Visit Provider Nurse Practitioner Family | DX: I86.1 Scrotal varices (principal); R31.29 Other microscopic hematuria; F17.200 Nicotine dependence, unspecified, uncomplicated | CPT/HCPCS: 81003; 99212 ==

== ENCOUNTER 2024-06-27 10:04 | Outpatient (REF) | payer MEDICAID, SELFPAY ==
[2024-06-27 11:19] LABS: MANUAL DIFF FLAG NO
[2024-06-27 11:27] LABS: Eosinophils Absolute Auto 0.1 X10*3/uL (0.0-0.4); Eosinophils Percent Auto 2.1 % (0-4); Hematocrit 33.7 % (42.0-52.0); Hemoglobin 10.9 g/dl (14.0-18.0); Imm Gran Abs Auto 0.01 X10*3/uL (0.00-0.03); Imm Gran Pct Auto 0.3 % (0.0-0.4); Lymphocytes Absolute Auto 1.6 X10*3/uL (1.2-4.9); Lymphocytes Percent Auto 40.2 % (20-40); Mean Corpuscular HGB Conc 32.3 g/dl (31.0-36.0); Mean Corpuscular Hemoglobin 24.8 pg (27.0-33.0); Mean Corpuscular Volume 76.6 fL (80.0-98.0); Mean Platelet Volume 11.2 fL (9.4-12.4); Monocytes Absolute Auto 0.3 X10*3/uL (0.1-1.2); Monocytes Percent Auto 7.5 % (2-11); Neutrophils Absolute Auto 1.9 x10*3/uL (2.0-8.3); Neutrophils Percent Auto 48.9 % (45-73); Platelet Count 224 X10*3/uL (160-400); Red Cell Distribution Width 14.4 % (11.0-16.0); White Blood Count 3.9 X10*3/uL (4.8-10.8)
[2024-06-27 11:54] LABS: Alanine Aminotransferase 14 U/L (0-40); Albumin Level 4.4 g/dL (3.5-5.0); Alkaline Phosphatase 32 U/L (39-117); Anion Gap 12 (12-20); Aspartate Amino Transferase 22 U/L (5-37); Bilirubin Total 0.5 mg/dL (0.0-1.0); Blood Urea Nitrogen 24 mg/dL (9-16); Calcium 9.7 mg/dL (8.4-10.2); Carbon Dioxide 29 mmol/L (22-29); Chloride 105 mmol/L (96-108); Cholesterol 145 mg/dL (<200); Estimated Glomerular Filt Rate 59; Glucose Random 59 mg/dL (60-115); HDL Cholesterol 51 mg/dL (>40); LDL Cholesterol Calculated 82 mg/dL (<100); Sodium 142 mmol/L (135-145); Total Protein 7.5 g/dL (6.5-8.0); Triglycerides 62 mg/dL (<150)
[2024-06-27 12:29] LABS: Vitamin B12 1014 pg/mL (200-900)
[2024-06-27 13:47] LABS: Reflex LDLD? No
[2024-06-28 12:49] LABS: HIV RNA PCR Qn Copies NOT DETECTED copies/mL (NOT DETECTED); HIV RNA PCR Qn Log Copies NOT DETECTED (NOT DETECTED)
[2024-06-29 08:29] LABS: RPR Rapid Plasma Reagin NON-REACTIVE (NON-REACTIVE)
[2024-06-30 10:48] LABS: TS Negative Control Passed; TS Panel A 1; TS Panel B 0; TS Positive Control Passed; TSpotTB Negative (Negative)
[2024-06-30 15:38] LABS: HCV Log PCR <1.18 NOT DETECTED Log IU/mL (NOT DETECTED); HepC Viral Load <15 NOT DETECTED IU/mL (NOT DETECTED)
[2024-06-30 21:49] LABS: Absolute CD3 Count 1073 cells/uL (840-3060); Absolute CD4 Count 665 cells/uL (490-1740); Absolute CD8 Count 424 cells/uL (180-1170); Absolute Lymphocytes 1496 cells/uL (850-3900); CD4 CD8 Ratio 1.57 (0.86-5.00); Percent CD3 Cells 72 % (57-85); Percent CD4 Cells 44 % (30-61); Percent CD8 Cells 28 % (12-42)
== END 2024-06-27 10:05 | disposition home or self-care (01) ==
LOC: HO.HHCL 10:04
PROVIDERS: Referring Provider Nurse Practitioner Primary Care; Visit Provider Student in an Organized Health Care Education/Training Program
DX: B20 Human immunodeficiency virus [HIV] disease (principal); G62.9 Polyneuropathy, unspecified
CPT/HCPCS: 36415; 80053; 80061; 82607; 85025; 86359; 86360; 86481; 86592; 87522; 87536

== ENCOUNTER 2024-08-14 | Outpatient (REF) | payer MEDICAID, SELFPAY ==
[2024-08-15 08:53] LABS: CT PCR NOT DETECTED (Not Detect.); NG PCR NOT DETECTED (Not Detect.)
[2024-08-19 00:34] LABS: C. Trachomatis RNA TMA, Throat NOT DETECTED; N. gonorrhoeae RNA TMA, Throat NOT DETECTED
== END 2024-08-14 00:01 | disposition home or self-care (01) ==
LOC: HO.LNP
PROVIDERS: Visit Provider Student in an Organized Health Care Education/Training Program
DX: Z21 Asymptomatic human immunodeficiency virus [HIV] infection status (principal)
CPT/HCPCS: 87491; 87591; 88112

== ENCOUNTER 2024-08-17 11:20 | Outpatient (REF) | payer MEDICAID, SELFPAY ==
--- NOTE | ~2024-08-17 | XR_ITS ---
EXAMINATION: XR SHOULDER, LEFT CLINICAL INFORMATION: NUMBNESS AND TINGLING IN BOTH HANDS,ATRAUMATIC SHOULDER PAIN QUESTIONING CERVICAL RADICULOPATHY ON LEFT SIDE.PT STATES PAIN FOR 2 YEARS. . COMPARISON: None available. TECHNIQUE: AP external rotation, Grashey, scapular Y, and axillary views of the left shoulder. FINDINGS: The bones and soft tissues are normal. No fracture. Glenohumeral and acromioclavicular alignment is anatomic with normal joint space. No abnormal soft tissue calcifications. XR/XR shoulder LT min 2V IMPRESSION: Normal left shoulder. Electronically signed by: Rafael Leyva MD 08/17/2024 04:32 PM EDT RP
--- NOTE | ~2024-08-17 | XR_ITS ---
EXAMINATION: XR CERVICAL SPINE CLINICAL INFORMATION: Numbness and tingling both hands. Question cervical radiculopathy. COMPARISON: None available. TECHNIQUE: 5 views of the cervical spine including obliques FINDINGS: Vertebral bodies normal height and normal alignment At C6-C7 there is mild disc space narrowing and endplate osteophytes indicative of degenerative disc disease. Remaining disc levels normal. Facets normal. Right neural foramina normal. Left neural foramina: Bony encroachment the left T3 neural foramina or likely due to projection rather than a true narrowing Surrounding bone and soft tissues unremarkable. XR/XR cervical spine 4V IMPRESSION: 1. Cervical spondylosis with degenerative disc disease at C6-C7. 2. Question bony encroachment on the left L2-L3 neural foramina more likely projectional rather than related to true narrowing Electronically signed by: Rafael Leyva MD 08/17/2024 04:36 PM EDT
== END 2024-08-17 11:21 | disposition home or self-care (01) ==
LOC: HO.HHCX 11:20
PROVIDERS: Visit Provider Nurse Practitioner Primary Care
DX: R20.0 Anesthesia of skin (principal); R20.2 Paresthesia of skin; M25.512 Pain in left shoulder; G89.29 Other chronic pain
CPT/HCPCS: 36415; 72050; 73030; 82728; 83036; 83525; 83540; 85014; 85018

== ENCOUNTER 2024-08-17 12:14 | Outpatient (REF) | payer MEDICAID, SELFPAY ==
[2024-08-17 14:11] LABS: Hematocrit 33.7 % (42.0-52.0); Hemoglobin 11.1 g/dl (14.0-18.0)
[2024-08-17 14:19] LABS: Estimated Average Glucose 117 mg/dL; Hemoglobin A1C 108.3156 umol/L; Hemoglobin A1c % 5.7 % (<6.0)
[2024-08-17 14:20] LABS: Iron 119 mcg/dL (45-160); Percent Iron Saturation 43 % (15-50); Total Iron Binding Capacity 274 mcg/dL (228-428); Unsaturated Iron Binding 155 ug/dL
[2024-08-17 14:37] LABS: Ferritin 171 ng/mL (20-250); Insulin 2 uU/mL (2-29)
== END 2024-08-17 12:15 | disposition home or self-care (01) ==
LOC: HO.HHCL 12:14
PROVIDERS: Visit Provider Nurse Practitioner Primary Care
DX: D64.9 Anemia, unspecified (principal); R73.03 Prediabetes
CPT/HCPCS: 36415; 82728; 83036; 83525; 83540; 85014; 85018

== ENCOUNTER 2024-10-06 10:52 | Outpatient (AMB) | payer MEDICAID, SELFPAY ==
--- NOTE | 2024-10-06 10:54 | A.OFFVIS_ITS ---
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 2nd 3rd and 5th bilateral digits have been cramping and locking 2nd and 5th digits of left hand turns white-pearl and cold to touch and have numbness and tingling his bilateral hands get swollen throughout the day, at the end of his day he is unable to remove his ring patient reports he does not feel have the same strength in his bilateral hands, lifting is painful and he is unable to squeeze. denies past medical treatment for bilateral hands. 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 Patient states this has been ongoing for ?a long while?. The patient states that his hands also frequently swell up, to the point where he is unable to get his rings off of the end of the day sometimes. The patient also states that his fingers frequently get white when they are numb, and expresses that he does have some vascular concerns and that he has suspected that he ?has no blood flow to these 2 these fingers sometimes. No other acute complaints or concerns this time. [facility] Medical History HIV (human immunodeficiency virus infection) Urinary hesitancy Tobacco dependence syndrome Depressive disorder Fibromyalgia Surgical History No pertinent past surgical history Social History (Updated 10/06/24 @ 11:03 by GRECIA Luther) Alcohol intake: never e-Cigarette/Vaping Use: Currently Using Current occupation: right hand dominant/[employer] Review of Systems Const All systems reviewed & are unremarkable except as noted in HPI and below Physical Exam Vital Signs: BMI result Body Mass Index 22.1 Extrem Other: Neuro: Normal sensation of the tips of all digits of bilateral hands in the office today No thenar or intrinsic wasting. Good APB muscle firing and good finger cross. Vascular: Capillary refill brisk. ROM: Patient can make a fist and extend all their digits. There is visible and palpable locking and catching of the right ring finger office today Skin: No lacerations or abrasions noted. General: No ecchymosis. No erythema or evidence of infection. Assessment & Plan Assessment & Plan (1) Bilateral hand pain: Code(s): M79.641 - Pain in right hand; M79.642 - Pain in left hand Category: Medical (2) Numbness and tingling in both hands: Code(s): R20.0 - Anesthesia of skin; R20.2 - Paresthesia of skin Category: Medical (3) Trigger finger, right ring finger: Code(s): M65.341 - Trigger finger, right ring finger Category: Medical Plan 1. Numbness and tingling of bilateral hands Patient was referred for EMG and nerve conduction study for assessment of the health of the nerves of bilateral upper extremities Patient will follow-up after EMG and nerve conduction study for results review and discussion of further treatment options if indicated Patient was amenable to this plan 2. Trigger finger, right ring finger Patient was educated about this condition Patient is educated about the treatment options available At this time, patient expresses that he is apprehensive about surgery or an injection, and would like some more time to think about these prior to any intervention Patient is educated that we can follow-up on his interest in these at his EMG and nerve conduction study follow-up Patient was amenable to this plan 3. Bilateral hand stiffness and pain Patient was referred to occupational therapy for range of motion and strengthening of bilateral hands Patient was amenable to this plan Patient will follow-up after EMG and nerve conduction study, sooner with any acute concerns Orders: Orders NE nerve conduction velocity Today R20.0 - Anesthesia of skin, R20.2 - Pares thesia of skin NE electromyogram (EMG) Today R20.0 - Anesthesia of skin, R20.2 - Paresthesia of skin OT Evaluation and Treatment Today M79.641 - Pain in right hand, M79.642 - Pain in left hand Coding Level of Care Code New Pt Level 3 (43951) Diagnoses Bilateral hand pain M79.641; M79.642 Numbness and tingling in both hands R20.0; R20.2 Trigger finger, right ring finger M65.341
[2024-10-06 10:56] VITALS: BMI 22.1
== END 2024-10-06 11:32 | disposition home or self-care (01) ==
PROVIDERS: PCP Nurse Practitioner Primary Care
DX: M79.641 Pain in right hand (principal); M79.642 Pain in left hand; R20.0 Anesthesia of skin; R20.2 Paresthesia of skin; M65.341 Trigger finger, right ring finger
CPT/HCPCS: 99203

== ENCOUNTER → 2024-10-06 10:52 | Outpatient (BNVA) | payer MEDICAID, SELFPAY | PROVIDERS: PCP Nurse Practitioner Primary Care | DX: M79.641 Pain in right hand (principal); M79.642 Pain in left hand; M65.341 Trigger finger, right ring finger; R20.0 Anesthesia of skin; R20.2 Paresthesia of skin | CPT/HCPCS: 99212 ==

== ENCOUNTER 2025-01-16 14:23 | Outpatient (REF) | payer MEDICAID, SELFPAY ==
[2025-01-16 16:12] LABS: MANUAL DIFF FLAG NO
[2025-01-16 16:36] LABS: Basophils Percent Auto 0.6 % (0-2); Eosinophils Absolute Auto 0.1 X10*3/uL (0.0-0.4); Eosinophils Percent Auto 1.1 % (0-4); Hematocrit 35.3 % (42.0-52.0); Hemoglobin 11.7 g/dl (14.0-18.0); Imm Gran Abs Auto 0.01 X10*3/uL (0.00-0.03); Imm Gran Pct Auto 0.2 % (0.0-0.4); Lymphocytes Absolute Auto 1.6 X10*3/uL (1.2-4.9); Lymphocytes Percent Auto 34.7 % (20-40); Mean Corpuscular HGB Conc 33.1 g/dl (31.0-36.0); Mean Corpuscular Hemoglobin 25.1 pg (27.0-33.0); Mean Corpuscular Volume 75.8 fL (80.0-98.0); Mean Platelet Volume 11.1 fL (9.4-12.4); Monocytes Absolute Auto 0.4 X10*3/uL (0.1-1.2); Monocytes Percent Auto 8.7 % (2-11); Neutrophils Absolute Auto 2.6 x10*3/uL (2.0-8.3); Neutrophils Percent Auto 54.7 % (45-73); Platelet Count 223 X10*3/uL (160-400); Red Blood Count 4.66 X10*6/uL (4.60-5.80); White Blood Count 4.7 X10*3/uL (4.8-10.8)
[2025-01-16 17:34] LABS: Erythrocyte Sedimentation Rate 8 MM/HR (0-15)
[2025-01-16 19:30] LABS: Alanine Aminotransferase 14 U/L (0-40); Albumin Level 4.2 g/dL (3.5-5.0); Alkaline Phosphatase 40 U/L (39-117); Anion Gap 13 (12-20); Aspartate Amino Transferase 26 U/L (5-37); Bilirubin Total 0.4 mg/dL (0.0-1.0); Blood Urea Nitrogen 20 mg/dL (9-16); Calcium 9.3 mg/dL (8.4-10.2); Carbon Dioxide 29 mmol/L (22-29); Chloride 105 mmol/L (96-108); Estimated Glomerular Filt Rate > 60; Glucose Random 81 mg/dL (60-115); Iron 90 mcg/dL (45-160); Percent Iron Saturation 34 % (15-50); Potassium 4.5 mmol/L (3.3-5.1); Sodium 142 mmol/L (135-145); Total Iron Binding Capacity 262 mcg/dL (228-428); Total Protein 7.2 g/dL (6.5-8.0); Unsaturated Iron Binding 172 ug/dL
[2025-01-17 03:58] LABS: HBS Num1 98.73 mIU/mL (0-7.99); HBc Num1 1.35 S/CO (0.00-0.79); HBsAGNum1 0.32 S/CO (0.00-0.99); Hepatitis B Surface Antigen Negative (Negative); ~Hepatitis B Surface Antibody REACTIVE (Nonreactive)
[2025-01-17 04:43] LABS: HBc Num2 1.44 S/CO; HBc Num3 1.43 S/CO; Hepatitis B Core Antibody Reactive (Nonreactive)
[2025-01-17 19:08] LABS: HIV RNA PCR Qn Copies 189 copies/mL (NOT DETECTED); HIV RNA PCR Qn Log Copies 2.28 (NOT DETECTED)
[2025-01-18 13:29] LABS: Cyclic Citrullinated Peptide <16 UNITS
[2025-01-19 15:28] LABS: Anti Nuclear Antibody Pattern Nuclear, Speckled; Anti Nuclear Antibody Screen POSITIVE (NEGATIVE); Anti Nuclear Antibody Titer 1:40 titer
[2025-01-19 17:34] LABS: Absolute CD3 Count 1173 cells/uL (840-3060); Absolute CD4 Count 599 cells/uL (490-1740); Absolute CD8 Count 580 cells/uL (180-1170); Absolute Lymphocytes 1758 cells/uL (850-3900); CD4 CD8 Ratio 1.03 (0.86-5.00); Percent CD3 Cells 67 % (57-85); Percent CD4 Cells 34 % (30-61); Percent CD8 Cells 33 % (12-42)
== END 2025-01-16 14:24 | disposition home or self-care (01) ==
LOC: HO.HHCL 14:23
PROVIDERS: Internal Medicine; Visit Provider Nurse Practitioner Primary Care
DX: M25.50 Pain in unspecified joint (principal)
CPT/HCPCS: 36415; 80053; 82306; 83540; 85025; 85652; 86038; 86039; 86140; 86200; 86359; 86360; 86704; 86706; 87340; 87536

== ENCOUNTER 2025-08-03 15:10 | Outpatient (REF) | payer SELFPAY | END 2025-08-03 15:11 | disposition home or self-care (01) | LOC: HO.HHCL 15:10 | PROVIDERS: PCP Student in an Organized Health Care Education/Training Program; Visit Provider Student in an Organized Health Care Education/Training Program | DX: Z11.1 Encounter for screening for respiratory tuberculosis (principal); Z11.59 Encounter for screening for other viral diseases; Z13.29 Encounter for screening for other suspected endocrine disorder; Z21 Asymptomatic human immunodeficiency virus [HIV] infection status | CPT/HCPCS: 36415; 80053; 81001; 82607; 82746; 84402; 84403; 84443; 85025; 86359; 86360; 86481; 86592; 86803; 87340; 87350; 87517; 87522; 87536 ==